=== PATIENT | female | born 1985 | race Caucasian/White ===

== ENCOUNTER 2017-06-27 09:15 | Emergency (ER) | payer OTHER ==
[~2017-06-27] VITALS: Ht 154.9 cm; Wt 104.4 kg
[~2017-06-27 09:15] MED LIST: DICL75 PO; EQL400TA PO; HYDR-3533 PO; METH2.5; NASA0.0521; PRED5TAB PO; PROM25SU8 PO; TRAM50 PO
[2017-06-27 09:33] VITALS: BP 211/102; PULSE 86; RESP 17; TEMP 97.4; O2SAT 98
--- NOTE | 2017-06-27 09:39 | PD ---
HPI Chief Complaint: Abdominal Pain Time Seen by Provider: 09:26 Travel History International Travel<30 days: No Contact w/Intl Traveler<30days: No Traveled to known affect area: No History of Present Illness HPI This 32-year-old female complaining of abdominal pain. She says the pain started about 1:00 this morning has been fairly constant. It has mostly epigastric. She does not recall having pain like this before. She has a history of rheumatoid arthritis in his on prednisone, diclofenac methotrexate. She has also been a drug study in gets an injection periodically. She has no history of abdominal surgery. She says there is no chance of . PFSH Past Medical History Hx Anticoagulant Therapy: No Autoimmune Disease: Yes (RA) Cardiovascular Problems: No Chemotherapy: No Cerebrovascular Accident: No Diabetes: No Diminished Hearing: No Kidney Stones: Yes Respiratory: No Ovarian Cysts: Yes Social History Alcohol Use: No Tobacco Use: No Substance Use: No Allergies-Medications (Allergen,Severity, Reaction): Coded Allergies: No Known Allergies (Verified Adverse Reaction, Unknown, 06/27/17) Reported Meds & Prescriptions Reported Meds & Active Scripts Active Reported Prednisone 2.5 Mg Tab 2.5 Mg PO EVERY OTHER DAY Methotrexate 2.5 Mg Tab 15 Mg PO Q7D Diclofenac Sodium DR (Diclofenac Sodium) 75 Mg Tabdr 75 Mg PO BID Review of Systems General / Constitutional: No: Fever, Chills Eyes: No: Diploplia HENT: No: Headaches, Lightheadedness Cardiovascular: No: Chest Pain or Discomfort Respiratory: No: Cough Gastrointestinal: Positive: Nausea, Abdominal Pain, No: Diarrhea Genitourinary: No: Urgency, Frequency Musculoskeletal: Positive: Arthralgias, No: Myalgias Neurologic: No: Weakness Hematologic/Lymphatic: No: Easy Bruising Physical Exam Narrative GENERAL: Well-developed female SKIN: Focused skin assessment warm/dry. HEAD: Atraumatic. Normocephalic. EYES: Pupils equal and round. No scleral icterus. No injection or drainage. ENT: No nasal bleeding or discharge. Mucous membranes pink and moist. NECK: Trachea midline. No JVD. CARDIOVASCULAR: Regular rate and rhythm. No murmur appreciated. RESPIRATORY: No accessory muscle use. Clear to auscultation. Breath sounds equal bilaterally. GASTROINTESTINAL: Abdomen soft, some epigastric tenderness, there appears to be some mild right upper quadrant tenderness also nondistended. Hepatic and splenic margins not palpable. MUSCULOSKELETAL: No obvious deformities. No clubbing. No cyanosis. No edema. NEUROLOGICAL: Awake and alert. No obvious cranial nerve deficits. Motor grossly within normal limits. Normal speech. PSYCHIATRIC: Appropriate mood and affect; insight and judgment normal. Data Data Last Documented VS Vital Signs Date Time Temp Pulse Resp B/P (MAP) Pulse Ox O2 Delivery O2 Flow Rate FiO2 06/27/17 10:33 73 17 184/106 (132) 97 Room Air 06/27/17 09:33 97.4 Orders Orders Complete Blood Count With Diff (06/27/17 09:32) Comprehensive Metabolic Panel (06/27/17 09:32) Lipase (06/27/17 09:32) Urinalysis - C+S If Indicated (06/27/17 09:32) Al-Mag Hy-Si 40-40-4 Mg/Ml Liq (Mag-Al P (06/27/17 09:45) Us Abdomen Gallbladder (06/27/17 09:32) Urine Culture (06/27/17 09:50) Ondansetron Inj (Zofran Inj) (06/27/17 11:00) Ns (Bolus) Inj (06/27/17 11:00) Morphine Inj (Morphine Inj) (06/27/17 11:30) Pantoprazole Inj (Protonix Inj) (06/27/17 11:30) Labs Laboratory Tests Test 06/27/17 09:50 White Blood Count 4.2 TH/MM3 Red Blood Count 5.58 MIL/MM3 Hemoglobin 16.4 GM/DL Hematocrit 49.6 % Mean Corpuscular Volume 88.8 FL Mean Corpuscular Hemoglobin 29.4 PG Mean Corpuscular Hemoglobin Concent 33.1 % Red Cell Distribution Width 13.2 % Platelet Count 188 TH/MM3 Mean Platelet Volume 9.0 FL Neutrophils (%) (Auto) 83.3 % Lymphocytes (%) (Auto) 13.4 % Monocytes (%) (Auto) 1.5 % Eosinophils (%) (Auto) 0.6 % Basophils (%) (Auto) 1.2 % Neutrophils # (Auto) 3.4 TH/MM3 Lymphocytes # (Auto) 0.6 TH/MM3 Monocytes # (Auto) 0.1 TH/MM3 Eosinophils # (Auto) 0.0 TH/MM3 Basophils # (Auto) 0.1 TH/MM3 CBC Comment DIFF FINAL Differential Comment Urine Collection Type CLEAN CATCH Urine Color YELLOW Urine Turbidity CLEAR Urine pH 6.0 Urine Specific [place] 1.014 Urine Protein NEG mg/dL Urine Glucose (UA) NEG mg/dL Urine Ketones NEG mg/dL Urine Occult Blood NEG Urine Nitrite NEG Urine Bilirubin NEG Urine Leukocyte Esterase SMALL Urine WBC 15-19 /hpf Urine WBC Clumps FEW Urine Transitional Epithelial Cells 0-5 /hpf Microscopic Urinalysis Comment CULTURE INDICATED Urine Collection Time 09:50 Blood Urea Nitrogen 7 MG/DL Creatinine 0.72 MG/DL Random Glucose 107 MG/DL Total Protein 8.5 GM/DL Albumin 3.9 GM/DL Calcium Level 8.3 MG/DL Alkaline Phosphatase 65 U/L Aspartate Amino Transf (AST/SGOT) 27 U/L Alanine Aminotransferase (ALT/SGPT) 38 U/L Total Bilirubin 0.5 MG/DL Sodium Level 136 MEQ/L Potassium Level 4.1 MEQ/L Chloride Level 103 MEQ/L Carbon Dioxide Level 23.2 MEQ/L Anion Gap 10 MEQ/L Estimat Glomerular Filtration Rate 94 ML/MIN Lipase 127 U/L [facility] Medical Decision Making Medical Screen Exam Complete: Yes Emergency Medical Condition: Yes Medical Record Reviewed: Yes Differential Diagnosis Differential includes biliary colic, pancreatitis, gastritis Narrative Course I did order an ultrasound which shows that she has gallstones without thickening of the wall or other signs of cholecystitis. I suspect her pain as secondary to gastritis from the multiple medications she takes specifically the diclofenac. I will add Protonix to her regimen. She did vomit once here in also prescribed some Zofran. I recommended that she speak to Dr. Sawyer to see if she can come off the diclofenac Diagnosis Primary Impression: Gastritis Qualified Codes: K29.60 - Other gastritis without bleeding Additional Instructions: Return if increasing pain, fever Scripts Ondansetron Odt (Zofran Odt) 4 Mg Tab 4 MG SL Q6HR Y for Nausea/Vomiting, #10 TAB 0 Refills Prov: Eitan Anderson MD 06/27/17 Pantoprazole (Protonix) 40 Mg Tab 40 MG PO DAILY for Reflux, #30 TAB 0 Refills Prov: Eitan Anderson MD 06/27/17 Disposition: 01 DISCHARGE HOME Condition: Stable Eitan Anderson MD Jun 27, 2017 09:39
[2017-06-27] MEDS ORDERED: DICL75TA PO (09:42)
[2017-06-27] MEDS ORDERED: METH2.5T PO (09:42)
[2017-06-27] MEDS ORDERED: PRED2.5T PO (09:42)
[2017-06-27] MEDS ORDERED: ALUMINUM/MAGNESIUM/SIMETH 30 ML CUP PO ONE (09:45)
[2017-06-27 09:59] LABS: AUTOMATED NEUTROPHIL # 3.4 TH/MM3 (1.8-7.7); BASOPHIL # 0.1 TH/MM3 (0-0.2); BASOPHIL % 1.2 % (0.0-2.0); EOSINOPHIL % 0.6 % (0.0-4.0); HEMATOCRIT 49.6 % (35.0-46.0); HEMOGLOBIN 16.4 GM/DL (11.6-15.3); LYMPH % 13.4 % (9.0-44.0); LYMPHOCYTE # 0.6 TH/MM3 (1.0-4.8); MEAN CELL VOLUME 88.8 FL (80.0-100.0); MEAN CORPUSCULAR HEMOGLOBIN 29.4 PG (27.0-34.0); MEAN CORPUSCULAR HGB CONC 33.1 % (32.0-36.0); MONO % 1.5 % (0.0-8.0); MONOCYTE # 0.1 TH/MM3 (0-0.9); NEUT % 83.3 % (16.0-70.0); PLATELET COUNT 188 TH/MM3 (150-450); RED BLOOD COUNT 5.58 MIL/MM3 (4.00-5.30); RED CELL DISTRIBUTION WIDTH 13.2 % (11.6-17.2); WHITE BLOOD COUNT 4.2 TH/MM3 (4.0-11.0)
[2017-06-27 10:00] LABS: BILIRUBIN, URINE NEG (NEG); BLOOD, URINE NEG (NEG); GLUCOSE,URINE NEG (NEG); KETONE, URINE NEG (NEG); NITRITE,URINE NEG (NEG); URINE LEUKOCYTE ESTERASE SMALL (NEG)
[2017-06-27 10:07] LABS: CHLORIDE 103 MEQ/L (98-107); SODIUM (NA) 136 MEQ/L (136-145)
[2017-06-27 10:10] LABS: CALCIUM 8.3 MG/DL (8.5-10.1)
[2017-06-27 10:11] LABS: ALBUMIN 3.9 GM/DL (3.4-5.0); BICARBONATE 23.2 MEQ/L (21.0-32.0); BLOOD UREA NITROGEN 7 MG/DL (7-18); GLUCOSE,RANDOM 107 MG/DL (74-106); LIPASE 127 U/L (73-393)
[2017-06-27 10:13] LABS: ALT (GPT) 38 U/L (10-53)
[2017-06-27 10:14] LABS: CREATININE 0.72 MG/DL (0.50-1.00); GLOMERULAR FILTRATION RATE 94 ML/MIN (>89); URINE COLOR YELLOW (YELLW/STRAW)
[2017-06-27 10:15] LABS: AST (GOT) 27 U/L (15-37); TOTAL BILIRUBIN ADULT 0.5 MG/DL (0.2-1.0); TOTAL PROTEIN 8.5 GM/DL (6.4-8.2)
[2017-06-27 10:16] LABS: ALKALINE PHOSPHATASE 65 U/L (45-117); TRANSITIONAL EPI CELLS, URINE 0-5 /hpf; WBC, URINE 15-19 /hpf (0-5); WHITE BLOOD CELL CLUMPS FEW
[2017-06-27 10:33] VITALS: BP 184/106; PULSE 73; RESP 17; O2SAT 97
--- NOTE | 2017-06-27 10:47 | RADRPT ---
EXAM DATE/TIME: 06/27/2017 10:18 [place] COMPARISON: No previous studies available for comparison. INDICATIONS : Gallstones. Nausea and abdominal pain. MEDICAL HISTORY : Kidney stones. UTI. Rheumatoid arthritis. SURGICAL HISTORY : ENCOUNTER: Initial ACUITY: 1 day PAIN SCORE: 7/10 LOCATION: Right upper quadrant MEASUREMENTS: LIVER: 20.2 cm length COMMON DUCT: 4 mm RIGHT KIDNEY: 10.5 x 5.2 x 4.7 cm FINDINGS: LIVER: Normal echotexture without focal lesion or ductal dilatation. COMMON DUCT: No intraluminal mass or stone visualized. GALLBLADDER: Contains numerous stones, however demonstrates no wall thickening or pericholecystic fluid. PANCREAS: The visualized portions are within normal limits. RIGHT KIDNEY: No evidence of hydronephrosis, stone, or mass. CONCLUSION: Gallstones including at least one stone in the neck without evidence of wall thickening. Ruben Gómez MD on June 27, 2017 at 10:44 Board Certified Radiologist. This report was verified electronically.
[2017-06-27] MEDS ORDERED: ONDANSETRON HCL 4 MG/2 ML VIAL IV PUSH ONE (11:00)
[2017-06-27] MEDS ORDERED: SODIUM CHLOR 0.9% 1000 ML INJ 1,000 ML IV ONE (11:00)
[2017-06-27] MEDS ORDERED: PANTOPRAZOLE SODIUM 40 MG VIAL IV PUSH ONE (11:30)
[2017-06-27] MEDS ORDERED: MORPHINE SULFATE 4 MG/ML INJ IV PUSH ONE (11:30)
[2017-06-27] MEDS ORDERED: PROT40TA PO (11:32)
[2017-06-27] MEDS ORDERED: ZOFR4TAB3 SL (11:32)
[2017-06-27] MEDS ORDERED: BACT800T5 PO (11:41)
[2017-06-27 12:00] VITALS: BP 184/112; PULSE 77; RESP 16; O2SAT 97
[2017-06-27 12:29] VITALS: RESP 16
[2017-06-27 12:38] VITALS: BP 186/106
== END 2017-06-27 12:45 | disposition home or self-care (01) ==
LOC: PHED 09:15
DX: K29.60 Other gastritis without bleeding (principal); M06.9 Rheumatoid arthritis, unspecified
CPT/HCPCS: 76705; 80053; 81001; 83690; 85025; 87086; 96361; 96374; 96375; 99285; C9113; J2270; J2405; J7030